=== PATIENT | female | born 1985 | race Two or more races ===

== ENCOUNTER 2017-09-03 16:43 | Emergency (ER) | payer OTHER ==
[~2017-09-03] VITALS: Ht 154.9 cm; Wt 70.8 kg
[2017-09-03 18:14] LABS: APPEARANCE,URINE CLEAR; BILIRUBIN, URINE NEGATIVE (NEGATIVE); COLOR,URINE PALE YELLOW; GLUCOSE, URINE (UA) NEGATIVE (NEGATIVE); KETONES,URINE NEGATIVE (NEGATIVE); LEUKOCYTE ESTERASE ,URINE 1+ (NEGATIVE); NITRITE,URINE NEGATIVE (NEGATIVE); PH,URINE 6 (4.5-8.0); PROTEIN,URINE NEGATIVE (NEGATIVE); UROBILINOGEN,URINE NORMAL MG/DL (0.0-1.0)
--- NOTE | 2017-09-03 18:17 | Emergency Room Report ---
History of Present Illness General Chief Complaint: Complications Source: Patient Present Illness HPI The patient is a 32-year-old female approximately 5 weeks . The patient reports having increased vaginal bleeding. She reports having spotting which reportedly was much less than her menses. She reports having one episode of vomiting. She denies any severe pain. She reports having slightly increased pain to the right side. She denies any dizziness or lightheadedness.She reports having previous blood type as a positive.The patient had recently been seen had quantitative beta-hCG approximately 8 days ago with the level approximately 220 Allergies: Coded Allergies: SULFA (SULFONAMIDE ANTIBIOTICS) (Verified Allergy, Unknown, Anaphylaxis, ) Patient History Past Medical History: see triage record Past Surgical History: unable to obtain Now: Yes : 2 Para: 0 Reviewed Nursing Documentation: PMH: Agreed; PSxH: Agreed Review of Systems All Other Systems: negative except mentioned in HPI Physical Exam Vital Signs Date Time Temp Pulse Resp B/P (MAP) Pulse Ox O2 Delivery O2 Flow Rate FiO2 09/03/17 16:59 98.1 92 17 112/72 98 Room Air 98.1 Sp02 EP Interpretation: reviewed, normal General Appearance: normal inspection, well appearing, no apparent distress, alert, GCS 15 Head: atraumatic ENT: normal ENT inspection, hearing grossly normal, normal voice Neck: normal inspection, full range of motion, supple, no bony tend Respiratory: normal inspection, lungs clear, normal breath sounds, no respiratory distress, no retraction, no wheezing Cardiovascular #1: regular rate, rhythm, no edema Gastrointestinal: normal inspection, normal bowel sounds, non tender, soft, no guarding, no hernia Genitourinary: no CVA tenderness Musculoskeletal: normal inspection, back normal, normal range of motion Neurologic: normal inspection, alert, oriented x3, responsive, unhairer III-XII nml as tested, speech normal Psychiatric: normal inspection, judgement/insight normal, mood/affect normal Skin: normal inspection, normal color, no rash Medical Decision Making Diagnostic Impression: Primary Impression: Complication of ER Course Patient presented for vaginal bleeding. Differential diagnosis included wasn't limited to ectopic , menorrhagia, coagulopathy, incomplete , threatened among others.Because of complexity of patient's case laboratory testing and imaging studies were ordered. The laboratory testing was notable for elevated beta quantitative hCG 4000. This appears to be slightly more elevated than expected given the patient's recent quantitative hCG draw. Patient was noted to have intrauterine on ultrasound with possible cervical cyst versus additional gestational sac. Patient is advised follow-up with [facility] for repeat evaluation in 2 days for repeat quantitative as well as the further evaluation Labs Test 09/03/17 17:12 09/03/17 17:40 Urine Color Pale yellow Urine Appearance Clear Urine pH 6 (4.5-8.0) Urine Specific [place] 1.020 (1.005-1.035) Urine Protein Negative (NEGATIVE) Urine Glucose (UA) Negative (NEGATIVE) Urine Ketones Negative (NEGATIVE) Urine Occult Blood 2+ (NEGATIVE) Urine Nitrite Negative (NEGATIVE) Urine Bilirubin Negative (NEGATIVE) Urine Urobilinogen Normal MG/DL (0.0-1.0) Urine Leukocyte Esterase 1+ (NEGATIVE) Urine RBC 5-10 /HPF (0 - 2) Urine WBC 2-4 /HPF (0 - 2) Urine Squamous Epithelial Cells Few /LPF (NONE/OCC) Urine Amorphous Sediment Few /LPF (NONE) Urine Bacteria Moderate /HPF (NONE) White Blood Count 9.1 K/UL (4.8-10.8) Red Blood Count 4.34 M/UL (4.20-5.40) Hemoglobin 13.1 G/DL (12.0-16.0) Hematocrit 38.5 % (37.0-47.0) Mean Corpuscular Volume 89 FL (80-99) Mean Corpuscular Hemoglobin 30.2 PG (27.0-31.0) Mean Corpuscular Hemoglobin Concent 34.1 G/DL (32.0-36.0) Red Cell Distribution Width 10.9 % (11.6-14.8) Platelet Count 285 K/UL (150-450) Mean Platelet Volume 7.2 FL (6.5-10.1) Neutrophils (%) (Auto) 55.8 % (45.0-75.0) Lymphocytes (%) (Auto) 33.9 % (20.0-45.0) Monocytes (%) (Auto) 9.0 % (1.0-10.0) Eosinophils (%) (Auto) 0.3 % (0.0-3.0) Basophils (%) (Auto) 1.0 % (0.0-2.0) Sodium Level 141 MMOL/L (136-145) Potassium Level 4.0 MMOL/L (3.5-5.1) Chloride Level 104 MMOL/L (98-107) Carbon Dioxide Level 27 MMOL/L (21-32) Anion Gap 10 mmol/L (5-15) Blood Urea Nitrogen 11 mg/dL (7-18) Creatinine 0.5 MG/DL (0.55-1.30) Estimat Glomerular Filtration Rate > 60 mL/min (>60) Glucose Level 91 MG/DL (74-106) Calcium Level 9.1 MG/DL (8.5-10.1) Total Bilirubin 0.1 MG/DL (0.2-1.0) Aspartate Amino Transf (AST/SGOT) 15 U/L (15-37) Alanine Aminotransferase (ALT/SGPT) 29 U/L (12-78) Alkaline Phosphatase 55 U/L (46-116) Total Protein 6.9 G/DL (6.4-8.2) Albumin 3.8 G/DL (3.4-5.0) Globulin 3.1 g/dL Albumin/Globulin Ratio 1.2 (1.0-2.7) Lipase 185 U/L (73-393) Human Chorionic Gonadotropin, Quant 4107 mIU/mL (1-6) Last Vital Signs Date Time Temp Pulse Resp B/P (MAP) Pulse Ox O2 Delivery O2 Flow Rate FiO2 09/03/17 16:59 98.1 92 17 112/72 98 Room Air 98.1 Status: improved Disposition: HOME, SELF-CARE Condition: Stable Scripts No Active Prescriptions or Reported Meds Referrals: NOT CHOSEN IPA/,REFERRING (PCP) Portillo Romero MD September 03, 2017 18:17
[2017-09-03 18:18] LABS: EOSINOPHILS % (AUTO) 0.3 % (0.0-3.0); HEMATOCRIT 38.5 % (37.0-47.0); HEMOGLOBIN 13.1 G/DL (12.0-16.0); LYMPHOCYTES % (AUTO) 33.9 % (20.0-45.0); MEAN CORPUSCULAR VOLUME 89 FL (80-99); NEUTROPHILS % (AUTO) 55.8 % (45.0-75.0); PLATELET COUNT 285 K/UL (150-450); RED BLOOD COUNT 4.34 M/UL (4.20-5.40); RED CELL DISTRIBUTION WIDTH 10.9 % (11.6-14.8); WHITE BLOOD COUNT 9.1 K/UL (4.8-10.8)
[2017-09-03 18:25] LABS: ANION GAP 10 mmol/L (5-15); BLOOD UREA NITROGEN 11 mg/dL (7-18); CALCIUM 9.1 MG/DL (8.5-10.1); CARBON DIOXIDE 27 MMOL/L (21-32); CHLORIDE 104 MMOL/L (98-107); CREATININE 0.5 MG/DL (0.55-1.30); SODIUM 141 MMOL/L (136-145)
[2017-09-03 18:30] LABS: ALANINE AMINOTRANSFERASE 29 U/L (12-78); ALBUMIN 3.8 G/DL (3.4-5.0); ALBUMIN/GLOBULIN RATIO 1.2 (1.0-2.7); ALKALINE PHOSPHATASE 55 U/L (46-116); ASPARTATE AMINO TRANSFERASE 15 U/L (15-37); BILIRUBIN,TOTAL 0.1 MG/DL (0.2-1.0)
[2017-09-03 20:11] VITALS: BP 112/72
--- NOTE | 2017-09-04 10:56 | Diagnostic Imaging Report ---
Indication: Positive test. Assessment of first trimester . Lower pelvic abdominal pain Technique: Grayscale and duplex Doppler imaging of the pelvis performed utilizing a transabdominal scan and endovaginal scan. Comparison: None Findings: There is demonstration of an intrauterine gestational sac with a small pole. By mean sac diameter measurements the gestational age is 5 weeks 4 days. Viability is obviously unknown at this time. Recommend repeat ultrasound in one to 2 weeks and correlation with quantitative beta hCG. In the area of the internal cervical os, there is a small complex cystic structure measuring 6 mm. Within the cyst there is a rounded echogenic focus. This could be a nabothian cyst. A second , (abnormal in location as a consequence of spontaneous or heterotopic implantation) is possible theoretically but unlikely. Suggest follow-up. The ovaries are unremarkable. IMPRESSION: Single viability indeterminate 5 week 4 day intrauterine . Follow-up and serial quantitative beta hCG are recommended. Complex cystic structure in the upper cervix most likely a nabothian cyst. Follow-up recommended [facility] has communicated the preliminary results to the Emergency Department. Their findings are largely concordant with this report.
== END 2017-09-03 20:11 | disposition home or self-care (01) ==
LOC: EMR 17:17
DX: O20.9 Hemorrhage in early pregnancy, unspecified (principal); Z3A.01 Less than 8 weeks gestation of pregnancy; Z88.2 Allergy status to sulfonamides
CPT/HCPCS: 36415; 76801; 76830; 80053; 81003; 83690; 84702; 85025; 87086; 99283

== ENCOUNTER 2017-09-15 03:06 | Emergency (ER) | payer OTHER ==
[~2017-09-15] VITALS: Ht 154.9 cm; Wt 68.9 kg
[2017-09-15 03:11] VITALS: BP 108/62
--- NOTE | 2017-09-15 03:41 | Emergency Room Report ---
History of Present Illness General Chief Complaint: Complications Source: Patient Present Illness HPI Patient presents with complaints of persistent discomfort to the right inguinal area Also feeling cramping and discomfort to the right lower back region patient reports That she was seen by her OB physician yesterday had ultrasound and hormone level checked on Saturday Which was up to 20,000 Denies any vaginal bleeding at this time the cramps the patient complained is regarding the right inguinal region Denies any fall or trauma patient reports that she has done essentially bed rest since last week Patient also reports being in the car for significant part of the day today Again denies any vaginal bleeding denies any chest pain or shortness of breath patient is had miscarriage several months ago Allergies: Coded Allergies: SULFA (SULFONAMIDE ANTIBIOTICS) (Verified Allergy, Unknown, Anaphylaxis, ) Patient History Past Medical History: see triage record Pertinent Family History: none Last Menstrual Period: july 28 Now: Yes - 7 weeks : 2 Para: 0 Reviewed Nursing Documentation: PMH: Agreed; PSxH: Agreed Review of Systems All Other Systems: negative except mentioned in HPI Physical Exam Vital Signs Date Time Temp Pulse Resp B/P (MAP) Pulse Ox O2 Delivery O2 Flow Rate FiO2 09/15/17 03:11 98.2 90 18 108/62 99 Room Air 98.2 Sp02 EP Interpretation: reviewed, normal General Appearance: well appearing, no apparent distress Head: normocephalic, atraumatic Eyes: bilateral eye PERRL, bilateral eye EOMI ENT: hearing grossly normal, normal pharynx, TMs + canals normal, uvula midline Neck: full range of motion, supple, no meningismus, no bony tend Respiratory: lungs clear, normal breath sounds, no rhonchi, no respiratory distress, no retraction, no accessory muscle use Cardiovascular #1: normal peripheral pulses, regular rate, rhythm, no edema, no gallop, no JVD, no murmur Gastrointestinal: normal bowel sounds, non tender, soft, no mass, no organomegaly, non-distended, no guarding, no hernia, no pulsatile mass, no rebound Genitourinary: no CVA tenderness Musculoskeletal: normal inspection Neurologic: oriented x3, responsive, farm or ranch animal caretaker III-XII nml as tested, motor strength/ tone normal, sensory intact Psychiatric: mood/affect normal Skin: normal color, no rash, warm/dry, palpation normal Lymphatic: normal inspection, no adenopathy Medical Decision Making Diagnostic Impression: Primary Impression: abdominal pain in ER Course With the patient's history and examination, multiple differentials considered, including but not limited to , ectopic , ovarian torsion, gastritis, cholecystitis, pancreatitis, appendicitis Patient ultrasound reviewed from last week Shows evidence of intrauterine there was a complex cyst with likely evidence of nabothian cyst Patient's beta Quant at that time was 4000 she reports that she was told her hormone level was up to 20,000 by her OB physician At this time patient's discomfort is similar to her previous and has persisted essentially She was not sure if any medication was okay to take during and has not taken any medicine Consideration for ovarian torsion is made however very low given the persistence from 10 days ago Also appendicitis less likely given the abdominal exam Discomfort mainly localized to the inguinal region Patient was initially having beta Quant recheck today however reports specific number she was told by her OB physician so this was not repeated. Patient has ultrasound revealing intrauterine and at this time requires close outpatient follow-up Patient was also asked regarding providing medicine here for pain however she states that she has Tylenol at home and will take the whole medication CT/MRI/US Diagnostic Results CT/MRI/US Diagnostic Results : Impression OB ultrasound from 09/03:IMPRESSION: Single viability indeterminate 5 week 4 day intrauterine . Follow-up and serial quantitative beta hCG are recommended. Complex cystic structure in the upper cervix most likely a nabothian cyst. Follow-up recommended Last Vital Signs Date Time Temp Pulse Resp B/P (MAP) Pulse Ox O2 Delivery O2 Flow Rate FiO2 09/15/17 03:11 98.2 90 18 108/62 99 Room Air 98.2 Status: unchanged Disposition: HOME, SELF-CARE Condition: Stable Scripts No Active Prescriptions or Reported Meds Patient Instructions: Abdominal Pain During , [id number] Additional Instructions: The ultrasound you had obtained here last week does not show any signs of ectopic . There was sign of early intrauterine . Have also reported that he had ultrasound obtained yesterday at your OB physician office. Also that you're hormone level was up to 20,000 which is appropriately elevated from the 4000 level we had in the ER here. Your exam does not appear consistent with appendicitis, or other emergencies such as ovarian torsion. Please continue bed rest and see your OB physician on Saturday. It was also discussed that Tylenol 650 mg every 8 hours is appropriate for pain in Lavon Schwartz DO Sep 15, 2017 03:41
== END 2017-09-15 03:45 | disposition home or self-care (01) ==
LOC: EMR 03:40
DX: O26.891 Other specified pregnancy related conditions, first trimester (principal); R10.9 Unspecified abdominal pain; Z88.2 Allergy status to sulfonamides
CPT/HCPCS: 99284

== ENCOUNTER 2017-12-04 14:30 | Emergency (ER) | payer OTHER, MEDICAID ==
[~2017-12-04] VITALS: Ht 154.9 cm; Wt 77.1 kg
[2017-12-04 14:45] VITALS: BP 109/54
[2017-12-04] MEDS ORDERED: Dicyclomine HCl 10mg/5ml oral soln ORAL ONE (15:15)
[2017-12-04] MEDS ORDERED: Metoclopramide 10mg/2ml Inj IVP ONE (15:15)
[2017-12-04 15:59] LABS: BASOPHILS % (AUTO) 0.6 % (0.0-2.0); EOSINOPHILS % (AUTO) 0.6 % (0.0-3.0); HEMATOCRIT 36.7 % (37.0-47.0); HEMOGLOBIN 12.8 G/DL (12.0-16.0); LYMPHOCYTES % (AUTO) 22.1 % (20.0-45.0); MEAN CORPUSCULAR VOLUME 88 FL (80-99); MONOCYTES % (AUTO) 7.9 % (1.0-10.0); NEUTROPHILS % (AUTO) 68.8 % (45.0-75.0); PLATELET COUNT 195 K/UL (150-450); RED BLOOD COUNT 4.16 M/UL (4.20-5.40); RED CELL DISTRIBUTION WIDTH 11.5 % (11.6-14.8); WHITE BLOOD COUNT 7.9 K/UL (4.8-10.8)
[2017-12-04 16:10] LABS: ANION GAP 9 mmol/L (5-15); BLOOD UREA NITROGEN 6 mg/dL (7-18); CALCIUM 9.4 MG/DL (8.5-10.1); CARBON DIOXIDE 23 MMOL/L (21-32); CHLORIDE 104 MMOL/L (98-107); CREATININE 0.3 MG/DL (0.55-1.30); POTASSIUM 3.8 MMOL/L (3.5-5.1); SODIUM 136 MMOL/L (136-145)
[2017-12-04 16:15] LABS: ALANINE AMINOTRANSFERASE 25 U/L (12-78); ALBUMIN 2.7 G/DL (3.4-5.0); ALBUMIN/GLOBULIN RATIO 0.7 (1.0-2.7); ALKALINE PHOSPHATASE 57 U/L (46-116); ASPARTATE AMINO TRANSFERASE 16 U/L (15-37); BILIRUBIN,TOTAL 0.2 MG/DL (0.2-1.0)
--- NOTE | 2017-12-04 16:35 | Emergency Room Report ---
History of Present Illness General Chief Complaint: General Complaint Source: Patient Present Illness HPI 32 YO Female presents to the ED c/oN/V/D x 2 days. pt. reports profuse watery diarrhea. pt. states N/V where her first symptoms then today began having diarrhea. pt reports that she has been trying to hydrate with Pedialyte. pt reports 2/10 in severity epigastric burning up through the chest most prominently after vomiting. denies blood in the vomit or stool. denies dark black stools. pt. denies recent travel, ill contacts, or recent antibiotic use. Denies fevers or chills. pt. reports that she is 18 wks . Pt. states she also has been having intermittent swelling in the bilateral feet x 2 weeks. pt. states worse at the end of the day and resolved in the am. pt. reports she is standing all day at work. denies [place], cough, SOB or dizziness. Pt. denies abdominal tenderness, uterine cramping, vaginal bleeding or vaginal d/c. Allergies: Coded Allergies: SULFA (SULFONAMIDE ANTIBIOTICS) (Verified Allergy, Unknown, Anaphylaxis, ) Patient History Past Medical History: see triage record Past Surgical History: none Pertinent Family History: none Now: Yes - 18 weeks Reviewed Nursing Documentation: PMH: Agreed; PSxH: Agreed Nursing Documentation-PMH Past Medical History: No Stated History Review of Systems All Other Systems: negative except mentioned in HPI Physical Exam Vital Signs Date Time Temp Pulse Resp B/P (MAP) Pulse Ox O2 Delivery O2 Flow Rate FiO2 12/04/17 14:34 98.5 96 18 109/54 97 Room Air 98.4 Sp02 EP Interpretation: reviewed, normal General Appearance: no apparent distress, alert, GCS 15, non-toxic Head: normocephalic, atraumatic Eyes: bilateral eye normal inspection, bilateral eye PERRL ENT: hearing grossly normal, normal voice Neck: full range of motion Respiratory: lungs clear, normal breath sounds, speaking full sentences Cardiovascular #1: regular rate, rhythm, normal capillary refill, edema - 1+ non-pitting edema, NVI , good cap refill Gastrointestinal: normal bowel sounds - mildly hyperactive in all 4 quadrants, non tender, soft, non-distended, no guarding Rectal: deferred Genitourinary: normal inspection, no CVA tenderness Musculoskeletal: back normal, gait/station normal, normal range of motion, non- tender Neurologic: alert, oriented x3, responsive, motor strength/tone normal, sensory intact, normal gait, speech normal, grossly normal Psychiatric: judgement/insight normal Skin: normal color, no rash, warm/dry, well hydrated Medical Decision Making PA Attestation Dr. Gaston is my supervising Physician whom patient management has been discussed with. Diagnostic Impression: Primary Impression: Dehydration during Additional Impression: Vomiting and diarrhea ER Course 32 YO Female presents to the ED c/oN/V/D x 2 days. pt. reports profuse watery diarrhea. pt. states N/V where her first symptoms then today began having diarrhea. pt reports that she has been trying to hydrate with Pedialyte. pt reports 2/10 in severity epigastric burning up through the chest most prominently after vomiting. denies blood in the vomit or stool. denies dark black stools. pt. denies recent travel, ill contacts, or recent antibiotic use. Denies fevers or chills. pt. reports that she is 18 wks . Pt. states she also has been having intermittent swelling in the bilateral feet x 2 weeks. pt. states worse at the end of the day and resolved in the am. pt. reports she is standing all day at work. denies [place], cough, SOB or dizziness. Pt. denies abdominal tenderness, uterine cramping, vaginal bleeding or vaginal d/c. Ddx considered but are not limited to GE, colitis, acute appy, SBO, Cyclical Vomiting secondary to THC, hyperemesis gravidum Vital signs: pt. is afebrile, and all WNL. H&PE are most consistent with GE most likely viral in etiology, no evidence to suggest acute abdomen on physical exam. ORDERS: -CBC: Unremarkable -CMP: unremarkable- pt. had low albumin however normal during . -EK NSR ED INTERVENTIONS: -1000 NS iv hydration, -Reglan IV Pepcid IV -Bentyl PO Re-assessment after interventions: -pt. reports she is feeling significantly better. d/w pt urgent OBGYN follow up in the next 3 days. Gave strict ED return precautions for worsening or new symptoms DISCHARGE: At this time pt. is stable for d/c to home. Will provide printed patient care instructions, and any necessary prescriptions. Care plan and follow up instructions have been discussed with the patient prior to discharge. Labs Test 12/04/17 15:45 White Blood Count 7.9 K/UL (4.8-10.8) Red Blood Count 4.16 M/UL (4.20-5.40) Hemoglobin 12.8 G/DL (12.0-16.0) Hematocrit 36.7 % (37.0-47.0) Mean Corpuscular Volume 88 FL (80-99) Mean Corpuscular Hemoglobin 30.7 PG (27.0-31.0) Mean Corpuscular Hemoglobin Concent 34.8 G/DL (32.0-36.0) Red Cell Distribution Width 11.5 % (11.6-14.8) Platelet Count 195 K/UL (150-450) Mean Platelet Volume 7.5 FL (6.5-10.1) Neutrophils (%) (Auto) 68.8 % (45.0-75.0) Lymphocytes (%) (Auto) 22.1 % (20.0-45.0) Monocytes (%) (Auto) 7.9 % (1.0-10.0) Eosinophils (%) (Auto) 0.6 % (0.0-3.0) Basophils (%) (Auto) 0.6 % (0.0-2.0) Sodium Level 136 MMOL/L (136-145) Potassium Level 3.8 MMOL/L (3.5-5.1) Chloride Level 104 MMOL/L (98-107) Carbon Dioxide Level 23 MMOL/L (21-32) Anion Gap 9 mmol/L (5-15) Blood Urea Nitrogen 6 mg/dL (7-18) Creatinine 0.3 MG/DL (0.55-1.30) Estimat Glomerular Filtration Rate > 60 mL/min (>60) Glucose Level 92 MG/DL (74-106) Calcium Level 9.4 MG/DL (8.5-10.1) Total Bilirubin 0.2 MG/DL (0.2-1.0) Aspartate Amino Transf (AST/SGOT) 16 U/L (15-37) Alanine Aminotransferase (ALT/SGPT) 25 U/L (12-78) Alkaline Phosphatase 57 U/L (46-116) Total Protein 6.7 G/DL (6.4-8.2) Albumin 2.7 G/DL (3.4-5.0) Globulin 4.0 g/dL Albumin/Globulin Ratio 0.7 (1.0-2.7) EKG Diagnostic Results EP Interpretation: Dr. Gaston Rate: normal - 83 BPM Rhythm: NSR ST Segments: no acute changes ASA given to the pt in ED: No PA Scribe Text This Interpretation was scribed by ADAMS Sarmiento. Last Vital Signs Date Time Temp Pulse Resp B/P (MAP) Pulse Ox O2 Delivery O2 Flow Rate FiO2 12/04/17 14:45 98.4 96 18 109/54 97 Room Air 98.4 Disposition: HOME, SELF-CARE Condition: Stable Scripts Dicyclomine Hcl* (DICYCLOMINE HCL*) 10 Mg Capsule 10 MG PO QID, #15 CAP Prov: Katiana Sarmiento 12/04/17 Metoclopramide Hcl* (REGLAN*) 10 Mg Tablet 10 MG ORAL THREE TIMES A DAY, #20 TAB Prov: Katiana Sarmiento 12/04/17 Referrals: NON PHYSICIAN (PCP) Departure Forms: Return to Work Return to Work Date: Dec 08, 2017 Work Restrictions: No Prolonged Standing, Desk Work Only Other Restrictions: light duty/ limited standing x 2 weeks. Return to Full Activity: Dec 18, 2017 Patient Instructions: Dehydration, Adult, [id number], Diarrhea, Adult, Easy- to-Read, Food Choices to Help Relieve Diarrhea, Adult Additional Instructions: Take medications as directed. Follow up with a Primary Care Provider and OBGYN in 3-5 days, even if your symptoms have resolved. --Please review list of primary care clinics, if you do not already have a primary care provider Return sooner to ED if new symptoms occur, or current symptoms become worse. - Please note that this Emergency Department Report was dictated using [employer] shirring machine operator technology software, occasionally this can lead to erroneous entry secondary to interpretation by the dictation equipment. Katiana Sarmiento Dec 04, 2017 16:35
[2017-12-04] MEDS ORDERED: REGLAN10 MG ORAL (16:36)
[2017-12-04] MEDS ORDERED: DICYCLOMINE HCL10 MG PO (16:36)
[2017-12-04 16:49] VITALS: BP 109/54
--- NOTE | 2017-12-05 23:38 | Cardiology Report ---
APPROVED REPORT EKG Measurement Heart [id number] [id number] Normal sinus rhythm Normal ECG
== END 2017-12-04 16:50 | disposition home or self-care (01) ==
LOC: EMR 15:11
DX: O26.892 Other specified pregnancy related conditions, second trimester (principal); O21.8 Other vomiting complicating pregnancy; E86.0 Dehydration; R11.0 Nausea; R19.7 Diarrhea, unspecified; R07.89 Other chest pain; Z88.2 Allergy status to sulfonamides; Z3A.18 18 weeks gestation of pregnancy; Z87.891 Personal history of nicotine dependence
CPT/HCPCS: 36415; 80053; 85025; 93005; 96361; 96374; 96375; 99285; J2765; S0028